=== PATIENT | male | born 1980 | race African-American/Black ===

== ENCOUNTER 2018-01-22 00:20 | Emergency (ER) | payer SELFPAY ==
[2018-01-22 00:33] VITALS: BMI 25.7
--- NOTE | 2018-01-22 00:37 | PDOC ---
History of Present Illness - General History Source: Patient Exam Limitations: No Limitations - History of Present Illness Initial Comments: 01/22/18 00:48 The patient is a 37 year old male, with a significant past medical history of Sickle Cell Disease, SC, and CVA, who presents to the emergency department with , acute onset of left sided weakness, body pains, nausea, and vomiting. The patient reports his pain to worsen on the right side. The patient has weakness in his left upper and lower extremities with associated slurred speech. He took his normal medications, however, his symptoms progressively worsened. He denies any recent fevers, chills, headache or dizziness. He denies any recent diarrhea or constipation. He denies any recent chest pain or shortness of breath. He denies any recent dysuria, frequency, urgency or hematuria. Past surgical history: None reported. Social History: Nonsmoker. Denies EtOH use and recreational drug use. <Elsa Bonilla - Last Filed: 01/22/18 00:48> - General History Source: Patient <Michelet Martinez - Last Filed: 01/22/18 19:38> - General Chief Complaint: CVA/TIA Stated Complaint: R/O STROKE Time Seen by Provider: 01/22/18 00:32 Past History <Elsa Bonilla - Last Filed: 01/22/18 00:48> - Suicide/Smoking/Psychosocial Hx Smoking History: Never smoked Information on smoking cessation initiated: No Hx Alcohol Use: No Drug/Substance Use Hx: No <Michelet Martinez - Last Filed: 01/22/18 19:38> - Past Medical History Allergies/Adverse Reactions: Allergies Allergy/AdvReac Type Severity Reaction Status Date / Time haloperidol [From Haldol] Allergy Verified 01/22/18 00:28 ketorolac [From Toradol] Allergy Verified 01/22/18 00:43 NSAIDS (Non-Steroidal Allergy Verified 01/22/18 00:43 Anti-Inflamma risperidone [From Risperdal] Allergy Verified 01/22/18 00:42 Home Medications: Ambulatory Orders Clopidogrel Bisulfate [Plavix -] 75 mg PO DAILY 01/22/18 Diphenhydramine HCl [Benadryl -] 25 mg PO Q6H 01/22/18 Folic Acid 1 mg PO DAILY 01/22/18 HYDROmorphone [Dilaudid -] 4 mg PO Q6H 01/22/18 Hydroxyurea [Hydrea -] 500 mg PO DAILY 01/22/18 Nitroglycerin Sublingual [Nitrostat -] 0.4 mg SL PRN PRN 01/22/18 Review of Systems - Review of Systems Able to Perform ROS?: Yes Comments:: 01/22/18 00:48 CONSTITUTIONAL: Present: Body pains worsening on the right. Absent: fever, no chills, no fatigue EYES: Absent: visual changes ENT: Absent: ear pain, no sore throat CARDIOVASCULAR: Absent: chest pain, no palpitations RESPIRATORY: Absent: cough, no SOB GI: Present: Nausea and Vomiting. Absent: abdominal pain,no constipation, no diarrhea GENITOURINARY: Absent: dysuria, no frequency, no hematuria MUSKULOSKELETAL: Absent: back pain, no arthralgia, no myalgia SKIN: Absent: rash NEURO: Present: Left upper and lower extremity weakness. Right sided facial droop. Slurred speech. Absent: headache All Other Systems: Reviewed and Negative <Elsa Bonilla - Last Filed: 01/22/18 00:48> *Physical Exam - Vital Signs Last Vital Signs Temp Pulse Resp BP Pulse Ox 98.3 F 82 20 116/72 96 01/22/18 00:24 01/22/18 00:24 01/22/18 00:24 01/22/18 00:24 01/22/18 00:24 - Physical Exam Comments: 01/22/18 00:49 GENERAL: Well developed, well nourished. Awake and alert. No acute distress. HEENT: Normocephalic, atraumatic. PERRLA, EOMI. No conjunctival pallor. Sclera are non- icteric. Moist mucous membranes. Oropharynx is clear. NECK: Supple. Full ROM. No JVD. Carotid pulses 2+ and symmetric, without bruits. No thyromegaly. No lymphadenopathy. CARDIOVASCULAR: Regular rate and rhythm. No murmurs, rubs, or gallops. Distal pulses are 2+ and symmetric. PULMONARY: No evidence of respiratory distress. Lungs clear to auscultation bilaterally. No wheezing, rales or rhonchi. ABDOMINAL: Soft. Non-tender. Non-distended. No rebound or guarding. No organomegaly. Normoactive bowel sounds. MUSCULOSKELETAL Normal range of motion at all joints. No bony deformities or tenderness. No CVA tenderness. EXTREMITIES: No cyanosis. No clubbing. No edema. No calf tenderness. SKIN: Warm and dry. Normal capillary refill. No rashes. No jaundice. +NEUROLOGICAL: Strength 2/5 in the left upper and lower extremities. Strength 4/5 in the right upper and lower extremities. Mild right sided facial droop. Slurred speech. Alert, awake. PSYCHIATRIC: Cooperative. Good eye contact. Appropriate mood and affect. <Elsa Bonilla - Last Filed: 01/22/18 00:48> - Vital Signs Last Vital Signs Temp Pulse Resp BP Pulse Ox 98.3 F 82 20 116/72 96 01/22/18 00:24 01/22/18 00:24 01/22/18 00:24 01/22/18 00:24 01/22/18 00:24 <Michelet Martinez - Last Filed: 01/22/18 19:38> NIH Stroke Scale - Last Known Well Date/Time & Onset Date Last Known Well: 01/21/18 Time Last Known Well: 11:00 - Initial Evaluation Level of consciousness: Alert Ask patient the month and their age: Answers both correctly Ask patient to open & close eyes; make fist and let go: Obeys both correctly Best gaze (horizontal eye movement): Normal Visual field testing: No visual field loss Facial paresis (Show teeth/raise eyebrows/close eyes tight): Minor paralysis ( flattened nasolabial fold, asymmetry on smiling) Motor Function: Left Arm: Some effort against gravity Motor Function: Right Arm: Normal (extends arm 90 (or 45) degrees for 10 seconds without drift Motor Function: Left Leg: Some effort against gravity Motor Function: Right Leg: Normal (extends leg 30 degrees for 5 seconds without drift) Limb Ataxia: Present in two limbs Sensory(Use pinprick test arms,legs,trunk,face/side to side): Normal Best language (Describe picture, name items, read sentences): No Aphasia Dysarthria (read several words): Mild to moderate slurring of words Extinction and Inattention: No abnormality - Total Score NIH Stroke Scale Score: 8 <iMchelet Martinez - Last Filed: 01/22/18 19:38> Heart Score/ECG Review - ECG Intrepretation Comment:: 01/22/18 00:37 EKG performed at: 22 January 2018 at 0:34:59am Vent Rate 87 bpm MS interval 128 ms QRS duration 84 ms QT/QTc 362/435 ms P-R-T axes 65 29 40 Normal sinus rhythm Possible acute pericarditis Abnormal ECG <Elsa Bonilla - Last Filed: 01/22/18 00:48> Critical Care Time/MDM Note - Medical Decision Making Note: 01/22/18 00:44 Pt refusing to go to CT scan until he is medicated as he says he can not lay down, due to his sickle cell crisis. States that Dilaudid is the only medication that relieves his pain. Pt is aware that the hospital doesn't have Dilaudid. Pt offered Fentanyl and Demerol. Pt accepts both. informed that he can receive them at various times. 01/22/18 00:[address] scan because he now wants Benadryl 01/22/18 01:[address] scan completely because he says he can't lay down. He is in too much pain. 01/22/18 01:22 Now pt refusing blood draw. States he is still in pain and won't allow it. 01/22/18 01:48 Pt now want to leave against medical advise after all the medications he has received. Pt is now ambulating, after he said he was not able to walk, due to the left leg weakness he had on presentation. Pt willing to sign against medical advised and take risk of worsening condition. Requesting prescription for pain medication. 01/22/18 02:15 Pt now sleeping 01/22/18 06:13 Pt still sleeping, not allowing care <Michelet Martinez - Last Filed: 01/22/18 19:38> Discharge Disposition <Elsa Bonilla - Last Filed: 01/22/18 00:48> - Discharge Dispostion Decision to Admit order: No <Michelet Martinez - Last Filed: 01/22/18 19:38> - Diagnosis Left against medical advice, Sickle cell crisis - Discharge Dispostion Disposition: AGAINST MEDICAL ADVICE Condition at time of disposition: Unchanged/Unknown - Patient Instructions Printed Discharge Instructions: DI for Sickle Cell Anemia, Pain Crisis -- Adult Additional Instructions: You are leaving the emergency department AGAINST MEDICAL ADVICE. By doing so, you are at risk for your symptoms getting worse, getting a disability, or even . Return to the emergency department as soon as possible to complete your evaluation. Please follow up with your doctor as soon as possible as your symptoms can become worse, such as weakness or complete paralysis. Attestations - Attestations 01/22/18 00:49 Documentation prepared by Elsa Bonilla, acting as medical office manager for Michelet Martinez DO. <Elsa Bonilla - Last Filed: 01/22/18 00:48>
[2018-01-22] MEDS ORDERED: MEPERIDINE HCL CARPU-JECT 75 MG/1 ML DISP.SYRIN IM ONE (00:43)
[2018-01-22] MEDS ORDERED: MEPERIDINE HCL CARPU-JECT 50 MG/1 ML DISP.SYRIN ONE ×3 (00:44→01:13)
[2018-01-22] MEDS ORDERED: SODIUM CHLORIDE 1,000 ML IV SCH (00:45)
[2018-01-22] MEDS ORDERED: MEPERIDINE HCL CARPU-JECT 100 MG/1 ML DISP.SYRIN IM ONE (01:01)
[2018-01-22] MEDS ORDERED: oxyCODONE HCL 20 MG SUSTAINED ACTING TABLET PO ONE (01:39)
[2018-01-22] MEDS ORDERED: oxyCODONE HCL 5 MG TABLET ONE (01:47)
[2018-01-22 06:55] VITALS: BP 112/64; PULSE 79; TEMP 98.2
--- NOTE | 2018-01-22 07:37 | PDOC ---
*Physical Exam - Vital Signs Last Vital Signs Temp Pulse Resp BP Pulse Ox 98.2 F 79 18 112/64 96 01/22/18 06:35 01/22/18 06:35 01/22/18 06:35 01/22/18 06:35 01/22/18 06:35 ED Treatment Course - Medications Given in the ED: ED Medications Discontinued Medications Generic Name Dose Route Start Last Admin Trade Name Antionette PRN Reason Stop Dose Admin Diphenhydramine HCl 50 mg 01/22/18 00:52 01/22/18 00:45 Benadryl Injection - IM 01/22/18 00:53 50 mg ONCE ONE Administration Fentanyl 100 mcg 01/22/18 00:32 01/22/18 00:43 Sublimaze Injection - IM 01/22/18 00:33 100 mcg ONCE ONE Administration Fentanyl 100 mcg 01/22/18 01:39 01/22/18 02:12 Sublimaze Injection - IVPUSH 01/22/18 01:40 Not Given ONCE ONE Fentanyl 100 mcg 01/22/18 01:44 01/22/18 02:12 Sublimaze Injection - IM 01/22/18 01:45 Not Given ONCE ONE Meperidine HCl 75 mg 01/22/18 00:43 01/22/18 00:54 Demerol Injection - IM 01/22/18 00:44 75 mg ONCE ONE Administration Meperidine HCl 100 mg 01/22/18 01:01 01/22/18 01:07 Demerol Injection - IM 01/22/18 01:02 100 mg ONCE ONE Administration Oxycodone HCl 20 mg 01/22/18 01:39 01/22/18 02:11 Oxycontin - PO 01/22/18 01:40 Not Given ONCE ONE Medical Decision Making - Medical Decision Making 01/22/18 07:55 Care received at 0700 Briefly, pt has hx SCD, CAD presents to the ED with back pain consistent with his sickle cell crisis but also c/o neuro sxs. Initially refused work up for neuro sxs without pain medications. Pt was given IM demerol and IM fentanyl but continued to refuse all testing. Pt was sleeping for the majority of the night. During bedside rounds this AM, pt lying flat on stretcher, after rounds I re- evaluated pt and woke him up with the nurse He states that most of his weakness is resolved, but he still has numbness in LUE. Pt has normal strength in all extremities on my exam but states sensation in LUE "feels different." Explained to pt my concern that this could be a stroke and the necessity of getting a CTH, labs for work up Pt again refusing imaging without IM pain meds. Pt appears to understand my concern for a stroke but is refusing care and work up until he gets IM pain meds. I offered PO pain medications to the patient, he refused Due to his fixation on IM pain meds to lie flat on the CT table despite the fact that he was lying flat in the stretcher less than 30 mins prior to this conversation, I have low suspicion that pt requires IM narcotics for pain. Pt exhibits no motor weakness on exam. It's possible he could have a isolated sensory CVA. He is however on plavix at this time, is not a candidate for TPA ( he is out of the window), and also has too limited a NIHSS (1) for other interventions. He is refusing all work up and treatment at this time. 01/22/18 08:42 Pt continues to refuse care. The patient is clinically sober, free from distracting injury, appears to have intact insight and judgment and reason and in my opinion has the capacity to make decisions. The patient presents with back pain and LUE numbness. I have explained that I am concerned that this may represent a stroke; he has verbalized an understanding of my concerns. I have discussed the need for CTH and labs to get more information about potential causes of the patients symptoms. I have told the patient that if they leave and have LUE, he could get much worse, could become critically ill, and could possibly become disabled or . The patient is not willing to undergo a workup. He is unwilling to stay overnight for monitoring. He is refusing any further care and is leaving against medical advice. I am unable to convince the patient to stay, I have asked him to return as soon as possible to complete his evaluation. I have answered all their questions. Pt refusing to sign out AMA form. *DC/Admit/Observation/Transfer Diagnosis at time of Disposition: Left against medical advice, Sickle cell crisis - Discharge Dispostion Disposition: AGAINST MEDICAL ADVICE Condition at time of disposition: Unchanged/Unknown - Referrals - Patient Instructions Printed Discharge Instructions: DI for Sickle Cell Anemia, Pain Crisis -- Adult Additional Instructions: You are leaving the emergency department AGAINST MEDICAL ADVICE. By doing so, you are at risk for your symptoms getting worse, getting a disability, or even . Return to the emergency department as soon as possible to complete your evaluation. Please follow up with your doctor as soon as possible as your symptoms can become worse, such as weakness or complete paralysis. - Post Discharge Activity - Attestations Physician Attestion: 01/22/18 08:53 I, Dr. Leisa Gibson MD, attest that this document has been prepared under my direction and personally reviewed by me in its entirety. I further attest, that it accurately reflects all work, treatment, procedures and medical decision -making performed by me.
--- NOTE | 2018-01-23 11:54 | EKG ---
Test Reason : Blood Pressure : / mmHG Vent. Rate : 087 BPM Atrial Rate : 087 BPM P-R Int : 128 ms QRS Dur : 084 ms QT Int : 362 ms P-R-T Axes : 065 029 040 degrees QTc Int : 435 ms NORMAL SINUS RHYTHM POSSIBLE ACUTE PERICARDITIS ABNORMAL ECG NO PREVIOUS ECGS AVAILABLE Confirmed by EDMAR SANCHEZ, CLEVELAND ([id number]) on 01/23/2018 11:53:54 AM Referred By: Confirmed By:CLEVELAND HYATT MD
== END 2018-01-22 08:59 | disposition left against medical advice (07) ==
LOC: JER 00:20
PROC: 3E033GC Introduction of Other Therapeutic Substance into Peripheral Vein, Percutaneous Approach (ICD-10-PCS; principal; 2018-01-22)
PROC: 3E023GC Introduction of Other Therapeutic Substance into Muscle, Percutaneous Approach (ICD-10-PCS; 2018-01-22)
PROC: 3E023NZ Introduction of Analgesics, Hypnotics, Sedatives into Muscle, Percutaneous Approach (ICD-10-PCS; 2018-01-22)
PROC: 3E0337Z Introduction of Electrolytic and Water Balance Substance into Peripheral Vein, Percutaneous Approach (ICD-10-PCS; 2018-01-22)
DX: D57.00 Hb-SS disease with crisis, unspecified (principal)
CPT/HCPCS: 93005; 93010; 99283-25